=== PATIENT | female | born 1970 | race Caucasian/White ===

== ENCOUNTER 2020-02-22 12:24 | Emergency (ER) | payer BC ==
[~2020-02-22] VITALS: Ht 154.9 cm; Wt 64.9 kg
[2020-02-22] MEDS ORDERED: VENL150ER PO (12:35)
[2020-02-22] MEDS ORDERED: PROM25 PO (14:16)
[2020-02-22] MEDS ORDERED: ZEBUTAL 50-3251 EAC1 PO (14:16)
== END 2020-02-22 14:24 | disposition home or self-care (01) ==
LOC: ER 12:24
DX: G43.909 Migraine, unspecified, not intractable, without status migrainosus (principal); Z88.8 Allergy status to other drugs, medicaments and biological substances; Z79.899 Other long term (current) drug therapy
CPT/HCPCS: 96374; 96375; 99283-25; J1200; J1885; J2550; J7120